=== PATIENT | female | born 1960 | race Caucasian/White ===

== ENCOUNTER 2020-08-05 18:04 | Emergency (ER) | payer BC, OTHER ==
[2020-08-05] MEDS ORDERED: Sodium Chloride 0.9% 2.5 ML Syringe FLUSH PRN (18:53)
[2020-08-05] MEDS ORDERED: Sodium Chloride 0.9% 10 ML Syringe FLUSH PRN (18:53)
[2020-08-05] MEDS ORDERED: Sodium Chloride 0.9% 1,000 ML IV ONE (18:59)
[2020-08-05] MEDS ORDERED: Ketorolac 30 MG/ML SDV IVPUSH ONE (19:00)
--- NOTE | 2020-08-05 19:06 | EDM.PDOC ---
ED HPI GENERAL MEDICAL PROBLEM - General Chief Complaint: Back Pain or Injury Stated Complaint: ABDOMINAL PAIN, VOMITING Time Seen by Provider: 08/05/20 18:34 Source of Information: Reports: Patient History Limitations: Reports: No Limitations - History of Present Illness INITIAL COMMENTS - FREE TEXT/NARRATIVE: HISTORY AND PHYSICAL: History of present illness: Patient is a 60-year-old female presenting to the ED with her with sudden onset left-sided flank pain that started this afternoon that she describes as sharp and colicky. Patient also complains of 5 episodes of nonbloody/nonbilious vomiting secondary to pain. Patient also complains of sweating and losing her breath whenever she experiences pain. Patient denies any similar previous episodes and has no significant medical history. Patient reports taking 1 dose of ibuprofen this morning with mild palliation of pain. Denies any health history or any other symptoms or concerns. Patient denies fever, chills, chest pain, or cough. Denies headache, neck stiff ness, change in vision, syncope, or near syncope. Denies nausea, diarrhea, constipation, or dysuria. Has not noted any blood in urine or stool. Patient has been eating and drinking appropriately prior to onset of symptoms. Review of systems: As per history of present illness and below otherwise all systems reviewed and negative. Past medical history: As per history of present illness and as reviewed below otherwise noncontributory. Surgical history: As per history of present illness and as reviewed below otherwise noncontributory. Social history: See social history for further information Family history: As per history of present illness and as reviewed below otherwise noncontributory. Physical exam: General: Patient is alert, oriented, and in mild acute distress. Patient rigidly sitting on exam table in mild pain and sweating lightly. Vitals stable and reviewed by me. HEENT: Atraumatic, normocephalic, pupils equal and reactive bilaterally, negative for conjunctival pallor or scleral icterus, mucous membranes moist, TMs normal bilaterally, throat clear, neck supple, nontender, trachea midline. No drooling or trismus noted. No meningeal signs. No hot potato voice noted. Lungs: Clear to auscultation, breath sounds equal bilaterally, chest nontender. Heart: S1S2, regular rate and rhythm without overt murmur Abdomen: Soft, nondistended, nontender. Negative for masses or hepatosplenomegaly. Positive for costovertebral tenderness of the left Pelvis: Stable nontender. Genitourinary: Deferred. Rectal: Deferred. Skin: Intact, warm, dry. No lesions or rashes noted. Extremities: Atraumatic, negative for cords or calf pain. Neurovascular unremarkable. Neuro: Awake, alert, oriented. Cranial nerves II through XII unremarkable. Cerebellum unremarkable. Motor and sensory unremarkable throughout. Exam nonfocal. Notes: Initial exam, patient does have positive left-sided CVA tenderness and does appear uncomfortable on exam. After approximately 5 minutes, patient's pain completely resolved and she states that she is asymptomatic and has no residual symptoms. Will obtain routine lab work as well as scan of abdomen and pelvis. Patient does have an elevated glucose today at 289. Hemoglobin A1c abdomen and is 8.5, indicating new onset diabetes. Patient states she has never had a prior diagnosis of diabetes prior. Abdominal pelvic CT shows bilateral renal calculi larger and more numerous on the left without ureteral calculi. There is fluid stranding about both kidneys which is nonspecific. The uterus is mildly prominent and somewhat lobulated. Arthritic changes in the left hip. In the left mid to lower kidney as volvulus which could indicate an underlying lesion that is not well visualized without IV contrast. All incidental findings today discussed with patient and the importance to have this followed up with her primary care provider. Patient's urinalysis does show the presence of red blood cells but is not indicative of an infection. I suspect that patient has already passed a kidney stone due to complete resolution suddenly of her symptoms. BP has improved 160s/90s and otherwise vitally stable. Will start metformin and discussed the importance for close follow-up with her primary care provider and additional evaluation and follow-up from today's ER visit from lab work and imaging. Strict return precautions thoroughly discussed with patient. Voices understanding and is agreeable to plan of care. Denies any further questions or concerns at this time. Diagnostics: CBC, CMP, lipase, troponin, UA, EKG, CT abdomen pelvis without contrast, hgb a1c Therapeutics: Toradol, NS Prescription: Metformin Impression: Left flank pain, resolved, possible passed ureterolithiasis Diabetes, new onset Plan: 1. Take medication as prescribed. Follow up with your primary care provider as discussed. Return to the ED as needed and as discussed. Definitive disposition and diagnosis as appropriate pending reevaluation and review of above. Back Pain Score (Numeric/FACES): 10 - Related Data Allergies Allergy/AdvReac Type Severity Reaction Status Date / Time No Known Allergies Allergy Verified 08/05/20 18:52 Home Meds: Home Meds metFORMIN [Glucophage] 850 mg PO DAILY 14 Days #14 tab 08/05/20 [Rx] Past Medical History - Past Health History Medical/Surgical History: Denies Medical/Surgical History - Infectious Disease History Infectious Disease History: Reports: None Social & Family History - Tobacco Use Tobacco Use Status *Q: Never Tobacco User - Caffeine Use Caffeine Use: Reports: Coffee - Recreational Drug Use Recreational Drug Use: No ED ROS GENERAL - Review of Systems Review Of Systems: Comprehensive ROS is negative, except as noted in HPI. ED EXAM, GENERAL - Physical Exam Exam: See Below (see dictation) Course - Vital Signs Last Recorded V/S: Last Vital Signs Temp 97 F 08/05/20 18:53 Pulse 76 08/05/20 18:53 Resp 24 H 08/05/20 18:53 BP 190/64 H 08/05/20 18:53 Pulse Ox 98 08/05/20 18:53 - Orders/Labs/Meds Orders: Active Orders 24 hr Category Date Time Status EKG Documentation Completion [RC] STAT Care 08/05/20 18:53 Active CULTURE URINE [RM] Stat Lab 08/05/20 21:06 Ordered Sodium Chloride 0.9% [Saline Flush] Med 08/05/20 18:53 Active 10 ml FLUSH ASDIRECTED PRN Sodium Chloride 0.9% [Saline Flush] Med 08/05/20 18:53 Active 2.5 ml FLUSH ASDIRECTED PRN Saline Lock Insert [OM.PC] Stat Oth 08/05/20 18:53 Ordered Medication Orders Sodium Chloride (Sodium Chloride 0.9% 10 Ml Syringe) 10 ml FLUSH ASDIRECTED PRN PRN Reason: Keep Vein Open Last Admin: 08/05/20 19:16 Dose: 10 ml Documented by: JEFFY Sodium Chloride (Sodium Chloride 0.9% 2.5 Ml Syringe) 2.5 ml FLUSH ASDIRECTED PRN PRN Reason: Keep Vein Open Last Admin: 08/05/20 19:16 Dose: 2.5 ml Documented by: JEFFY Labs: Laboratory Tests 08/05/20 08/05/20 08/05/20 Range/Units 19:07 19:17 19:17 WBC 13.53 H (4.0-11.0) K/uL RBC 5.08 (4.30-5.90) M/uL Hgb 14.9 (12.0-16.0) g/dL Hct 43.1 (36.0-46.0) % MCV 84.8 (80.0-98.0) fL MCH 29.3 (27.0-32.0) pg MCHC 34.6 (31.0-37.0) g/dL RDW Std Deviation 38.8 (28.0-62.0) fl RDW Coeff of Rao 13 (11.0-15.0) % Plt Count 266 (150-400) K/uL MPV 9.50 (7.40-12.00) fL Neut % (Auto) 87.0 H (48.0-80.0) % Lymph % (Auto) 8.3 L (16.0-40.0) % [place] % (Auto) 4.4 (0.0-15.0) % Eos % (Auto) 0.1 (0.0-7.0) % Baso % (Auto) 0.2 (0.0-1.5) % Neut # (Auto) 11.8 H (1.4-5.7) K/uL Lymph # (Auto) 1.1 (0.6-2.4) K/uL [place] # (Auto) 0.6 (0.0-0.8) K/uL Eos # (Auto) 0.0 (0.0-0.7) K/uL Baso # (Auto) 0.0 (0.0-0.1) K/uL Nucleated RBC % 0.0 /100WBC Nucleated RBCs # 0 K/uL Sodium 141 (136-145) mmol/L Potassium 3.9 (3.5-5.1) mmol/L Chloride 100 (98-107) mmol/L Carbon Dioxide 28.0 (21.0-32.0) mmol/L BUN 16 (7.0-18.0) mg/dL Creatinine 1.0 (0.6-1.0) mg/dL Est Cr Clr Drug Dosing 52.31 mL/min Estimated GFR (MDRD) 56.7 ml/min Glucose 289 H (74-106) mg/dL Hemoglobin A1c (4.5 - 6.2) % Calcium 9.5 (8.5-10.1) mg/dL Total Bilirubin 0.4 (0.2-1.0) mg/dL AST 23 (15-37) IU/L ALT 45 (14-63) IU/L Alkaline Phosphatase 66 (46-116) U/L Troponin I < 0.050 (0.000-0.056) ng/mL Total Protein 8.2 (6.4-8.2) g/dL Albumin 4.6 (3.4-5.0) g/dL Globulin 3.6 (2.6-4.0) g/dL Albumin/Globulin Ratio 1.3 (0.9-1.6) Lipase 125 (73-393) U/L Urine Color YELLOW Urine Appearance SLT CLOUDY Urine pH 5.5 (5.0-8.0) Ur Specific [place] 1.025 (1.001-1.035) Urine Protein NEGATIVE (NEGATIVE) mg/dL Urine Glucose (UA) >=1000 (NEGATIVE) mg/dL Urine Ketones 40 H (NEGATIVE) mg/dL Urine Occult Blood LARGE H (NEGATIVE) Urine Nitrite NEGATIVE (NEGATIVE) Urine Bilirubin NEGATIVE (NEGATIVE) Urine Urobilinogen 0.2 (<2.0) EU/dL Ur Leukocyte Esterase NEGATIVE (NEGATIVE) Urine RBC 30-40 (0-2/HPF) Urine WBC 1-3 (0-5/HPF) Ur Epithelial Cells FEW (NONE-FEW) Urine Bacteria FEW (NEGATIVE) 08/05/20 Range/Units 19:17 WBC (4.0-11.0) K/uL RBC (4.30-5.90) M/uL Hgb (12.0-16.0) g/dL Hct (36.0-46.0) % MCV (80.0-98.0) fL MCH (27.0-32.0) pg MCHC (31.0-37.0) g/dL RDW Std Deviation (28.0-62.0) fl RDW Coeff of Rao (11.0-15.0) % Plt Count (150-400) K/uL MPV (7.40-12.00) fL Neut % (Auto) (48.0-80.0) % Lymph % (Auto) (16.0-40.0) % [place] % (Auto) (0.0-15.0) % Eos % (Auto) (0.0-7.0) % Baso % (Auto) (0.0-1.5) % Neut # (Auto) (1.4-5.7) K/uL Lymph # (Auto) (0.6-2.4) K/uL [place] # (Auto) (0.0-0.8) K/uL Eos # (Auto) (0.0-0.7) K/uL Baso # (Auto) (0.0-0.1) K/uL Nucleated RBC % /100WBC Nucleated RBCs # K/uL Sodium (136-145) mmol/L Potassium (3.5-5.1) mmol/L Chloride (98-107) mmol/L Carbon Dioxide (21.0-32.0) mmol/L BUN (7.0-18.0) mg/dL Creatinine (0.6-1.0) mg/dL Est Cr Clr Drug Dosing mL/min Estimated GFR (MDRD) ml/min Glucose (74-106) mg/dL Hemoglobin A1c 8.5 H (4.5 - 6.2) % Calcium (8.5-10.1) mg/dL Total Bilirubin (0.2-1.0) mg/dL AST (15-37) IU/L ALT (14-63) IU/L Alkaline Phosphatase (46-116) U/L Troponin I (0.000-0.056) ng/mL Total Protein (6.4-8.2) g/dL Albumin (3.4-5.0) g/dL Globulin (2.6-4.0) g/dL Albumin/Globulin Ratio (0.9-1.6) Lipase (73-393) U/L Urine Color Urine Appearance Urine pH (5.0-8.0) Ur Specific [place] (1.001-1.035) Urine Protein (NEGATIVE) mg/dL Urine Glucose (UA) (NEGATIVE) mg/dL Urine Ketones (NEGATIVE) mg/dL Urine Occult Blood (NEGATIVE) Urine Nitrite (NEGATIVE) Urine Bilirubin (NEGATIVE) Urine Urobilinogen (<2.0) EU/dL Ur Leukocyte Esterase (NEGATIVE) Urine RBC (0-2/HPF) Urine WBC (0-5/HPF) Ur Epithelial Cells (NONE-FEW) Urine Bacteria (NEGATIVE) Meds: Medications Generic Name Dose Route Start Last Admin Trade Name Freq PRN Reason Stop Dose Admin Sodium Chloride 10 ml 08/05/20 18:53 08/05/20 19:16 Sodium Chloride 0.9% 10 Ml Syringe FLUSH 10 ml ASDIRECTED PRN Administration Keep Vein Open Sodium Chloride 2.5 ml 08/05/20 18:53 08/05/20 19:16 Sodium Chloride 0.9% 2.5 Ml Syringe FLUSH 2.5 ml ASDIRECTED PRN Administration Keep Vein Open Discontinued Medications Generic Name Dose Route Start Last Admin Trade Name Freq PRN Reason Stop Dose Admin Sodium Chloride 1,000 mls @ 999 mls/hr 08/05/20 18:59 08/05/20 19:16 Normal Saline IV 08/05/20 19:59 999 mls/hr STAT ONE Administration Ketorolac Tromethamine 30 mg 08/05/20 19:00 08/05/20 19:16 Ketorolac 30 Mg/Ml Sdv IVPUSH 08/05/20 19:01 30 mg ONETIME ONE Administration Departure - Departure Time of Disposition: 21:01 Disposition: Home, Self-Care 01 Clinical Impression: Diabetes mellitus, new onset, Left flank pain - Discharge Information Prescriptions: metFORMIN [Glucophage] 850 mg PO DAILY 14 Days #14 tab Instructions: Type 2 Diabetes Mellitus, Diagnosis, Adult Referrals: PCP,None [Primary Care Provider] - Forms: ED Department Discharge Additional Instructions: The following information is given to patients seen in the emergency department who are being discharged to home. This information is to outline your options for follow-up care. We provide all patients seen in our emergency department with a follow-up referral. The need for follow-up, as well as the timing and circumstances, are variable depending upon the specifics of your emergency department visit. If you don't have a primary care physician on staff, we will provide you with a referral. We always advise you to contact your personal physician following an emergency department visit to inform them of the circumstance of the visit and for follow-up with them and/or the need for any referrals to a consulting specialist. The emergency department will also refer you to a specialist when appropriate. This referral assures that you have the opportunity for follow-up care with a specialist. All of these measure are taken in an effort to provide you with optimal care, which includes your follow-up. Under all circumstances we always encourage you to contact your private physician who remains a resource for coordinating your care. When calling for follow-up care, please make the office aware that this follow-up is from your recent emergency room visit. If for any reason you are refused follow-up, please contact the [facility] Emergency Department at and asked to speak to the emergency department charge nurse. [facility] [address] [place] [address] [facility] [address] [place] [id number] 1. Take medication as prescribed. Follow up with your primary care provider as discussed. Return to the ED as needed and as discussed. Sepsis Event Note (ED) - Evaluation Sepsis Screening Result: No Definite Risk - Focused Exam Vital Signs: Vital Signs Temp Pulse Resp BP Pulse Ox 08/05/20 18:53 97 F 76 24 H 190/64 H 98 - My Orders Last 24 Hours: My Active Orders 08/05/20 18:53 EKG Documentation Completion [RC] STAT Sodium Chloride 0.9% [Saline Flush] 10 ml FLUSH ASDIRECTED PRN Sodium Chloride 0.9% [Saline Flush] 2.5 ml FLUSH ASDIRECTED PRN Saline Lock Insert [OM.PC] Stat 08/05/20 21:06 CULTURE URINE [RM] Stat - Assessment/Plan Last 24 Hours: My Active Orders 08/05/20 18:53 EKG Documentation Completion [RC] STAT Sodium Chloride 0.9% [Saline Flush] 10 ml FLUSH ASDIRECTED PRN Sodium Chloride 0.9% [Saline Flush] 2.5 ml FLUSH ASDIRECTED PRN Saline Lock Insert [OM.PC] Stat 08/05/20 21:06 CULTURE URINE [RM] Stat
--- NOTE | 2020-08-05 19:08 | PCM.EKG ---
#1 Interpretation EKG Date: 08/05/20 Time: 19:00 Rhythm: NSR Rate (Beats/Min): 72 [place]: Normal P-Wave: Present QRS: Normal ST-T: Normal QT: Normal MD/PQ Interval: 200 EKG Interpretation Comments: no ischemic changes
[2020-08-05 19:45] LABS: BLOOD UREA NITROGEN,BUN 16 mg/dL (7.0-18.0); CHLORIDE,CL 100 mmol/L (98-107); GLUCOSE RANDOM 289 mg/dL (74-106); LIPASE 125 U/L (73-393); POTASSIUM,K 3.9 mmol/L (3.5-5.1); SODIUM,NA 141 mmol/L (136-145)
--- NOTE | 2020-08-05 20:21 | CT ---
INDICATION: Left flank pain. TECHNIQUE: CT with the abdomen and pelvis performed without oral or IV contrast. FINDINGS: Very marked arthritic changes in the left hip much greater than the right hip could be largely related to degenerative arthritis but given the significant severity of the arthritis on the in the left hip compared to the right other superimposed pathology in the left hip including a previous erosive arthritis or previous trauma cannot be excluded. Mild to moderate fatty infiltration of the liver with focal fatty sparing adjacent to the gallbladder. Few small stones in the left kidney. Few tiny stones in the right kidney. Very mild prominence of the left intrarenal collecting system. No left ureteral stones. Minimal fluid and stranding about both kidneys greater on the right. Without IV contrast ascending urinary tract infection such as pyelitis or pyelonephritis cannot be optimally evaluated for or excluded on this exam. Bulbous configuration of the left mid and lower kidney could indicate underlying lesions which cannot be visualized without IV contrast. Few mildly prominent portocaval lymph nodes likely reactive in nature. Moderate subcutaneous edema left buttock and hip. Much of the colon is not well distended. The proximal appendix is mildly dilated and contains high density within its lumen either related to appendicoliths or previously ingested high-density material. Proximally the appendix measures up to 8-9 mm in transverse diameter. More distally the appendix is smaller in caliber. No soft tissue stranding around the appendix to suggest appendicitis. The uterus is mildly prominent and somewhat lobulated and bulbous likely related to underlying myomatous change. Remainder negative. Impression : 1. Bilateral renal calculi larger and more numerous on the left. No ureteral calculi. 2. Fluid and stranding about both kidneys nonspecific. Without IV contrast, this CT does not optimally evaluate for ascending urinary tract infection such as pyelitis or pyelonephritis and if these are clinical considerations, one could consider a repeat CT with IV contrast. 3. The uterus is mildly prominent and somewhat lobulated and bulbous likely related to underlying myomatous change. 4. Markedly advanced arthritic changes left hip compared to the right may be largely related to degenerative arthritis but given the asymmetry could indicate other underlying superimposed etiology in the left hip such as previous trauma or previous erosive arthritis. 5. The left mid and lower kidney is somewhat bulbous which could indicate an underlying lesion which is not well visualized without IV contrast. Please note that all CT scans at this facility use dose modulation, iterative reconstruction, and/or weight-based dosing when appropriate to reduce radiation dose to as low as reasonably achievable. Dictated by Janak Ernandez MD @ Aug 05 2020 8:07PM Signed by Dr. Janak Ernandze @ Aug 05 2020 8:20PM
[2020-08-05 20:23] LABS: HEMOGLOBIN A1C 8.5 %
== END 2020-08-05 21:47 | disposition home or self-care (01) ==
LOC: MW.ED 18:04
DX: R10.9 Unspecified abdominal pain (principal); E11.9 Type 2 diabetes mellitus without complications; Z79.84 Long term (current) use of oral hypoglycemic drugs
CPT/HCPCS: 36415; 74176; 80053; 81001; 83036; 83690; 84484; 85025; 87086; 93005; 96374; 99284; J1885; J7030; 93010

== ENCOUNTER 2020-08-20 12:32 | Emergency (ER) | payer OTHER ==
[2020-08-20] MEDS ORDERED: Sodium Chloride 0.9% 1,000 ML IV ONE (12:39)
[2020-08-20] MEDS ORDERED: Ketorolac 30 MG/ML SDV IVPUSH ONE (12:39)
[2020-08-20] MEDS ORDERED: Sodium Chloride 0.9% 10 ML Syringe FLUSH PRN (12:39)
[2020-08-20] MEDS ORDERED: Ondansetron 4 MG/2 ML SDV IVPUSH ONE (12:39)
[2020-08-20] MEDS ORDERED: Sodium Chloride 0.9% 2.5 ML Syringe FLUSH PRN (12:39)
[2020-08-20] MEDS ORDERED: HYDROmorphone 1 MG/ML Syringe IVPUSH ONE (12:41)
[2020-08-20 13:16] LABS: BLOOD UREA NITROGEN,BUN 22 mg/dL (7.0-18.0); CARBON DIOXIDE,CO2 25.3 mmol/L (21.0-32.0); CHLORIDE,CL 94 mmol/L (98-107); GLUCOSE RANDOM 307 mg/dL (74-106); LIPASE 116 U/L (73-393); SODIUM,NA 134 mmol/L (136-145)
--- NOTE | 2020-08-20 13:43 | CT ---
INDICATION: Left flank pain. History of nephrolithiasis. TECHNIQUE: CT abdomen and pelvis without contrast. COMPARISON: [address] FINDINGS: Lower chest: Unremarkable. Liver: Mild diffuse low attenuation of parenchyma. Spleen: Unremarkable. Pancreas: Unremarkable. Gallbladder and bile ducts: Unremarkable. Kidneys: Mild left hydroureter to a 3 mm distal ureteral stone. Mild hydronephrosis. Several 3-4 mm nonobstructing calculi lower pole and posterior midpole left kidney. No stones or obstruction on the right. The Adrenal glands: Unremarkable. GI tract: Unremarkable. Appendix is normal. Vascular structures: Unremarkable. Lymph nodes: Unremarkable. Miscellaneous: Unremarkable. No free air or significant free fluid. Pelvic Organs: Unremarkable. Bones: Unremarkable for age. IMPRESSION: New from comparison mild left hydronephrosis and hydroureter from a 3 mm distal ureteral obstructing calculus. Several nonobstructing calculi in the mid to lower pole left kidney unchanged. Please note that all CT scans at this facility use dose modulation, iterative reconstruction, and/or weight-based dosing when appropriate to reduce radiation dose to as low as reasonably achievable. Dictated by Prudencio Knowles MD @ Aug 20 2020 1:37PM Signed by Dr. Prudencio Knowles @ Aug 20 2020 1:42PM
--- NOTE | 2020-08-20 14:16 | PCM.EKG ---
#1 Interpretation EKG Date: 08/20/20 Time: 13:50 EKG Interpretation Comments: sinus rhythm, rate of 59 normal axis and intervals no acute ischemia
--- NOTE | 2020-08-20 14:20 | EDM.PDOC ---
ED HPI GENERAL MEDICAL PROBLEM - General Chief Complaint: Genitourinary Problem Stated Complaint: KIDNEY STONES Time Seen by Provider: 08/20/20 12:35 Source of Information: Reports: Patient History Limitations: Reports: No Limitations - History of Present Illness INITIAL COMMENTS - FREE TEXT/NARRATIVE: HISTORY AND PHYSICAL: History of present illness: Patient is a 60-year-old female who resents emergency room today with concern of possible kidney stone as she had sudden left-sided flank pain at 8 this morning. Patient states that she has had one episode of vomiting and feels nauseous. Patient states she has a history of kidney stone in the past and states that this does feel similar. Patient states that she has been unable to take anything for her symptoms. Patient denies any other associative symptoms Patient denies fever, chills, chest pain, shortness of breath, or cough. Denies headache, neck stiff ness, change in vision, syncope, or near syncope. Denies nausea, vomiting, abdominal pain, diarrhea, constipation, or dysuria. Has not noted any blood in urine or stool. Patient has been eating and drinking appropriately. Review of systems: As per history of present illness and below otherwise all systems reviewed and negative. Past medical history: As per history of present illness and as reviewed below otherwise noncontributory. Surgical history: As per history of present illness and as reviewed below otherwise noncontributory. Social history: See social history for further information Family history: As per history of present illness and as reviewed below otherwise noncontributory. Physical exam: General: Patient is alert, oriented and appearing uncomfortable, unable to sit still and sweating on exam. Vitals stable and reviewed by me HEENT: Atraumatic, normocephalic, pupils equal and reactive bilaterally, negative for conjunctival pallor or scleral icterus, mucous membranes moist, TMs normal bilaterally, throat clear, neck supple, nontender, trachea midline. No drooling or trismus noted. No meningeal signs. No hot potato voice noted. Lungs: Clear to auscultation, breath sounds equal bilaterally, chest nontender. Heart: S1S2, regular rate and rhythm without overt murmur Abdomen: Soft, nondistended, nontender. Negative for masses or hepatosplenomegaly. Positive for costovertebral tenderness of the left. Pelvis: Stable nontender. Genitourinary: Deferred. Rectal: Deferred. Skin: Intact, warm, dry. No lesions or rashes noted. Extremities: Atraumatic, negative for cords or calf pain. Neurovascular unremarkable. Neuro: Awake, alert, oriented. Cranial nerves II through XII unremarkable. Cerebellum unremarkable. Motor and sensory unremarkable throughout. Exam nonfocal. Notes: On initial exam, patient does have CVA tenderness of the left and does appear quite uncomfortable. Patient has a history of kidney stones in the past and feel likely this is high on my differential. Will obtain abdominal pelvic CT scan without contrast and lab work to assess for patient's symptoms On lab work, patient does have an elevation in her creatinine at 1.4 and a mild elevation in her BUN and prior lab work. She also has a 3 mm distal ureteral obstructing calculus of her left. Due to this, I did call the urologist on- call, Dr. Victor, and thoroughly discussed patient's case. He states that this will likely improve and the stone will pass and would like patient to follow-up with him outpatient. On reevaluation patient, she is much more comfortable on exam and has adequate pain control she remains vitally stable. Patient provided with strainer and instructed on how to use this to assess for passing the stone. Voices understanding and is agreeable to plan of care. Denies any further questions or concerns at this time. Diagnostics: EKG, CBC, CMP, UA, Trop, Abd/pelvic w/o cont, lipase Therapeutics: NS, Zofran, Toradol, Dilaudid Prescription: Bellevue (#10), Zofran, Flomax Impression: Ureterolithiasis, left Acute kidney injury Plan: 1. Take medication as prescribed. You can also alternate ibuprofen and Tylenol as directed for pain and discomfort. 2. Follow-up with urologist as discussed. Return to the ED as needed and as discussed. 3. You have been provided with a urine strainer. Use this every time you urinate to try to catch the stone. Definitive disposition and diagnosis as appropriate pending reevaluation and review of above. left flank Pain Score (Numeric/FACES): 10 - Related Data Allergies Allergy/AdvReac Type Severity Reaction Status Date / Time No Known Allergies Allergy Verified 08/20/20 12:41 Home Meds: Home Meds metFORMIN [Glucophage] 850 mg PO DAILY 14 Days #14 tab 08/05/20 [Rx] Acetaminophen/HYDROcodone [Bellevue 325-5 MG] 1 tab PO Q6H #10 tablet 08/20/20 [Rx] Ondansetron [Zofran ODT] 4 mg PO Q6H PRN #8 tab.dis 08/20/20 [Rx] Tamsulosin HCl [Flomax] 0.4 mg PO DAILY #5 cap.er.24h 08/20/20 [Rx] Past Medical History - Past Health History Medical/Surgical History: Denies Medical/Surgical History Genitourinary History: Reports: Renal Calculus Endocrine/Metabolic History: Reports: Diabetes, Type II - Infectious Disease History Infectious Disease History: Reports: Chicken Pox Social & Family History - Family History Family Medical History: No Pertinent Family History - Tobacco Use Tobacco Use Status *Q: Never Tobacco User - Caffeine Use Caffeine Use: Reports: Coffee - Recreational Drug Use Recreational Drug Use: No ED ROS GENERAL - Review of Systems Review Of Systems: Comprehensive ROS is negative, except as noted in HPI. ED EXAM, GENERAL - Physical Exam Exam: See Below (see dictation) Course - Vital Signs Last Recorded V/S: Last Vital Signs Temp 98.7 F 08/20/20 14:40 Pulse 62 08/20/20 14:40 Resp 16 08/20/20 14:40 BP 134/68 08/20/20 14:40 Pulse Ox 94 L 08/20/20 14:40 - Orders/Labs/Meds Orders: Active Orders 24 hr Category Date Time Status DME for Discharge [COMM] Stat Oth 08/20/20 14:20 Ordered Saline Lock Insert [OM.PC] Stat Oth 08/20/20 12:39 Ordered Labs: Laboratory Tests 08/20/20 08/20/20 08/20/20 Range/Units 12:48 12:48 13:55 WBC 12.68 H (4.0-11.0) K/uL RBC 5.04 (4.30-5.90) M/uL Hgb 14.8 (12.0-16.0) g/dL Hct 43.1 (36.0-46.0) % MCV 85.5 (80.0-98.0) fL MCH 29.4 (27.0-32.0) pg MCHC 34.3 (31.0-37.0) g/dL RDW Std Deviation 39.2 (28.0-62.0) fl RDW Coeff of Rao 13 (11.0-15.0) % Plt Count 273 (150-400) K/uL MPV 9.20 (7.40-12.00) fL Neut % (Auto) 83.1 H (48.0-80.0) % Lymph % (Auto) 9.3 L (16.0-40.0) % Laporte % (Auto) 7.3 (0.0-15.0) % Eos % (Auto) 0.1 (0.0-7.0) % Baso % (Auto) 0.2 (0.0-1.5) % Neut # (Auto) 10.5 H (1.4-5.7) K/uL Lymph # (Auto) 1.2 (0.6-2.4) K/uL Laporte # (Auto) 0.9 H (0.0-0.8) K/uL Eos # (Auto) 0.0 (0.0-0.7) K/uL Baso # (Auto) 0.0 (0.0-0.1) K/uL Nucleated RBC % 0.0 /100WBC Nucleated RBCs # 0 K/uL Sodium 134 L (136-145) mmol/L Potassium 4.0 (3.5-5.1) mmol/L Chloride 94 L (98-107) mmol/L Carbon Dioxide 25.3 (21.0-32.0) mmol/L BUN 22 H (7.0-18.0) mg/dL Creatinine 1.4 H (0.6-1.0) mg/dL Est Cr Clr Drug Dosing 37.36 mL/min Estimated GFR (MDRD) 38.5 ml/min Glucose 307 H (74-106) mg/dL Calcium 9.1 (8.5-10.1) mg/dL Total Bilirubin 1.1 H (0.2-1.0) mg/dL AST 26 (15-37) IU/L ALT 41 (14-63) IU/L Alkaline Phosphatase 74 (46-116) U/L Troponin I < 0.050 (0.000-0.056) ng/mL Total Protein 8.0 (6.4-8.2) g/dL Albumin 4.2 (3.4-5.0) g/dL Globulin 3.8 (2.6-4.0) g/dL Albumin/Globulin Ratio 1.1 (0.9-1.6) Lipase 116 (73-393) U/L Urine Color YELLOW Urine Appearance CLEAR Urine pH 5.5 (5.0-8.0) Ur Specific Badger >= 1.030 (1.001-1.035) Urine Protein NEGATIVE (NEGATIVE) mg/dL Urine Glucose (UA) 500 H (NEGATIVE) mg/dL Urine Ketones 15 H (NEGATIVE) mg/dL Urine Occult Blood NEGATIVE (NEGATIVE) Urine Nitrite NEGATIVE (NEGATIVE) Urine Bilirubin NEGATIVE (NEGATIVE) Urine Urobilinogen 0.2 (<2.0) EU/dL Ur Leukocyte Esterase NEGATIVE (NEGATIVE) Meds: Medications Discontinued Medications Generic Name Dose Route Start Last Admin Trade Name Freq PRN Reason Stop Dose Admin Hydromorphone HCl 1 mg 08/20/20 12:41 08/20/20 12:54 Hydromorphone 1 Mg/Ml Syringe IVPUSH 08/20/20 12:42 1 mg ONETIME ONE Administration Sodium Chloride 1,000 mls @ 999 mls/hr 08/20/20 12:39 08/20/20 12:53 Normal Saline IV 08/20/20 13:39 999 mls/hr BOLUS ONE Administration Ketorolac Tromethamine 30 mg 08/20/20 12:39 08/20/20 12:54 Ketorolac 30 Mg/Ml Sdv IVPUSH 08/20/20 12:40 30 mg ONETIME ONE Administration Ondansetron HCl 4 mg 08/20/20 12:39 08/20/20 12:54 Ondansetron 4 Mg/2 Ml Sdv IVPUSH 08/20/20 12:40 4 mg ONETIME ONE Administration Sodium Chloride 10 ml 08/20/20 12:39 08/20/20 12:55 Sodium Chloride 0.9% 10 Ml Syringe FLUSH 10 ml ASDIRECTED PRN Administration Keep Vein Open Sodium Chloride 2.5 ml 08/20/20 12:39 08/20/20 12:55 Sodium Chloride 0.9% 2.5 Ml Syringe FLUSH 2.5 ml ASDIRECTED PRN Administration Keep Vein Open Departure - Departure Time of Disposition: 14:19 Disposition: Home, Self-Care 01 Clinical Impression: Ureterolithiasis, Acute kidney injury - Discharge Information Prescriptions: Tamsulosin HCl [Flomax] 0.4 mg PO DAILY #5 cap.er.24h Acetaminophen/HYDROcodone [B[place]vue 325-5 MG] 1 tab PO Q6H #10 tablet Ondansetron [Zofran ODT] 4 mg PO Q6H PRN #8 tab.dis PRN Reason: Nausea/Vomiting Instructions: Acute Kidney Injury, Adult, Kidney Stones, [id number] Referrals: PCP,None [Primary Care Provider] - Forms: ED Department Discharge Additional Instructions: The following information is given to patients seen in the emergency department who are being discharged to home. This information is to outline your options for follow-up care. We provide all patients seen in our emergency department with a follow-up referral. The need for follow-up, as well as the timing and circumstances, are variable depending upon the specifics of your emergency department visit. If you don't have a primary care physician on staff, we will provide you with a referral. We always advise you to contact your personal physician following an emergency department visit to inform them of the circumstance of the visit and for follow-up with them and/or the need for any referrals to a consulting specialist. The emergency department will also refer you to a specialist when appropriate. This referral assures that you have the opportunity for follow-up care with a specialist. All of these measure are taken in an effort to provide you with optimal care, which includes your follow-up. Under all circumstances we always encourage you to contact your private physician who remains a resource for coordinating your care. When calling for follow-up care, please make the office aware that this follow-up is from your recent emergency room visit. If for any reason you are refused follow-up, please contact the [facility] Emergency Department at and asked to speak to the emergency department charge nurse. [facility] [address] [place] [id number] [facility] [address] [place] [address] [facility] - Urology, Dr. Ruiz [address] [place] [id number] 1. Take medication as prescribed. You can also alternate ibuprofen and Tylenol as directed for pain and discomfort. 2. Follow-up with urologist as discussed. Return to the ED as needed and as discussed. 3. You have been provided with a urine strainer. Use this every time you urinate to try to catch the stone. Sepsis Event Note (ED) - Evaluation Sepsis Screening Result: No Definite Risk - Focused Exam Vital Signs: Vital Signs Temp Pulse Resp BP Pulse Ox 08/20/20 14:40 98.7 F 62 16 134/68 94 L 08/20/20 13:53 57 L 16 134/53 L 98 08/20/20 12:38 97.4 F 63 20 180/72 H 99 - My Orders Last 24 Hours: My Active Orders 08/20/20 12:39 Saline Lock Insert [OM.PC] Stat 08/20/20 14:20 DME for Discharge [COMM] Stat - Assessment/Plan Last 24 Hours: My Active Orders 08/20/20 12:39 Saline Lock Insert [OM.PC] Stat 08/20/20 14:20 DME for Discharge [COMM] Stat
== END 2020-08-20 14:43 | disposition home or self-care (01) ==
LOC: MW.ED 12:32
DX: N13.2 Hydronephrosis with renal and ureteral calculous obstruction (principal); N17.9 Acute kidney failure, unspecified; E11.9 Type 2 diabetes mellitus without complications; Z79.84 Long term (current) use of oral hypoglycemic drugs
CPT/HCPCS: 74176; 80053; 81003; 83690; 84484; 85025; 93005; 96374; 96375; 99284; J1170; J1885; J2405; J7030; 93010